=== PATIENT | female | born 1975 | race Caucasian/White ===

== ENCOUNTER 2018-09-30 13:14 | Inpatient (IN) | payer OTHER ==
[~2018-09-30] VITALS: Ht 167.6 cm; Wt 89.4 kg
[~2018-09-30 13:14] MED LIST: PROPOFOL 10 MG/ML, 100ML IV ONE; PROPOFOL 10 MG/ML, 20ML ONE
[2018-09-30] MEDS: PROPOFOL 100 ML IV PRN ×4 (13:22→22:09)
[2018-09-30] MEDS ORDERED: PROPOFOL 10 MG/ML, 20ML IVPush ONE (13:30)
[2018-09-30] MEDS ORDERED: SODIUM CHLORIDE FLUSH 10ML SYR IVF ONE (13:30)
--- NOTE | 2018-09-30 13:41 | NUR ---
PT. ARRIVES BY CARE FLIGHT FROM [facility] WITH C/O S/P CARDIAC ARREST. PER EMS REPORT PT. WAS FOUND BY HER S/O IN CARDIAC ARREST. PER S/O PT. HAS A HX OF METH USE. PT.'S S/O INICIATED CPR. UPON ARRIVAL PT. IS INTUBATED WITH A 7.5 ET TUBE THAT IS 24 CM AT THE LIP LINE. ETCO2 IS READING 30. PT. HAS GOOD BILAT BREATH SOUNDS THROUGHOUT. PT.'S VENT SETTINGS ARE: AC=14 AB=599 O2 IS AT 50% PEEO=5 I:E RATIO IS 1:3.8. PT. HAS AN IO IN PLACE IN HER RIGHT LEG, RN DCD' IT UPON ARRIVAL. PT. HAS A #20G IN HER LEFT HAND PLACED FENCE POST DRIVER WELL A #18 IN HER RIGHT FOOT PLACED FENCE POST DRIVER. PT. ARRIVES WITH AN INDWELLING SÁNCHEZ CATH THAT HAS 300CC CLEAR YELLOW URINE PRESENT IN THE BAG. PER FLIGHT RN REPORT PT. RECEIVED 1,400 CC NS FENCE POST DRIVER. PT. RESPONDS TO VERBAL STIMULI AND IS RESTLESS UPON ARRIVAL. PT. WAS PLACED ON A PROPOFOL GTT THAT IS INFUSING ON THE PUMP TO KEEP HER SEDATED. CONTINOUS MONITORING IS IN PLACE. PT.'S 12 LEAD EKG WAS DONE. LABS AND PCXR WERE COMPLETED. PT. HAS AN OG IN PLACE AT HER LEFT LIP. PT. WAS BLANKETS FOR WARMTH AND THE HOB IS ELEVATED GREATER THAN 30 DEGREES. LUNGS ARE CTA. MM ARE PINK AND MOIST WITH PULSES +2 THROUGHOUT. PT. IS PASSING GAS AND BS ARE + X 4 QUADS. PT.'S CAP REFILL IS BRISK. RR IS 14 WITH SATS 100%. PT. REMAINS ON ETCO2 MONITORING. RN IS AT THE BEDSIDE. VSS.
[2018-09-30 13:55] LABS: BASOPHILS % (AUTO) 0 % (0-1); EOSINOPHILS % (AUTO) 0 % (1-7); LYMPHOCYTES # (AUTO) 0.78 x10^3/uL (1-3.4); LYMPHOCYTES % (AUTO) 7 % (22-44); MD NO; MEAN CORPUSCULAR HEMOGLOBIN 28.2 pg (27.0-34.8); MEAN CORPUSCULAR HGB CONC 32.6 g/dL (32.4-35.8); MEAN CORPUSCULAR VOLUME 86.5 fL (80-100); MEAN PLATELET VOLUME 8.3 fL (7.4-10.4); MONOCYTES # (AUTO) 0.28 x10^3/uL (0.2-0.8); MONOCYTES % (AUTO) 3 % (2-9); NEUTROPHILS % (AUTO) 91 % (42-75); PLATELET COUNT 200 x10^3/uL (130-400); RED BLOOD COUNT 4.38 x10^6/uL (3.82-5.3); RED CELL DISTRIBUTION WIDTH 13.6 % (9.6-15.2)
[2018-09-30 14:03] LABS: INTERNATIONAL NORMALIZED RATIO 0.99 (0.93-1.1); PROTHROMBIN TIME 10.5 Seconds (9.6-11.5)
[2018-09-30 14:06] LABS: ALANINE AMINOTRANSFERASE 121 U/L (12-78); ANION GAP 5 mmol/L (5-15); CALCIUM 7.3 mg/dL (8.5-10.1); CHLORIDE 113 mmol/L (98-107); CREATININE 0.63 mg/dL (0.55-1.02)
--- NOTE | 2018-09-30 14:08 | NUR ---
PT. IS OPENING HER EYES AND RESTLESS. PT. REPONDS TO VERBAL STIMULI. PROPOFOL GTT TITRATED UP TO KEEP THE PT. SEDATED. PUPILS ARE ELLIS. SKIN CARE WAS GIVEN.
[2018-09-30 14:10] LABS: ALKALINE PHOSPHATASE 87 U/L (45-117); BILIRUBIN,TOTAL 0.3 mg/dL (0.2-1.0)
[2018-09-30 14:12] LABS: TROPONIN I 0.328 ng/mL (0.000-0.045)
[2018-09-30] MEDS ORDERED: SODIUM CHLORIDE FLUSH 10ML SYR IVF PRN (14:30)
[2018-09-30] MEDS ORDERED: PLEASE ENTER ALLERGIES MC SCH (14:30)
--- NOTE | 2018-09-30 14:48 | NUR ---
REPORT CALLED TO CCU RN. DR. PHAM IS AT THE BEDSIDE. PT. IS RESTLESS. PROPOFOL INCREASED.
[2018-09-30] MEDS ORDERED: SODIUM CHLORIDE 0.9% 1,000 ML IV SCH ×2 (14:52→16:15)
[2018-09-30] MEDS ORDERED: BISACODYL 10 MG SUPP PR PRN ×2 (15:00→16:30)
[2018-09-30] MEDS ORDERED: DOCUSATE 100 MG CAPSULE PO PRN (15:00)
[2018-09-30] MEDS ORDERED: POLYETHYLENE GLYCOL 17 GM PACKET PO PRN (15:00)
[2018-09-30] MEDS ORDERED: FENTANYL PF 2,500 MCG in SODIUM CHLORIDE 0.9% 200 ML IV PRN (15:30)
[2018-09-30] MEDS ORDERED: PROPOFOL 100 ML IV ONE (16:04)
[2018-09-30] MEDS ORDERED: LIDOCAINE-MPF 1%, 2ML ENDO PRN (16:30)
[2018-09-30] MEDS ORDERED: SENNOSIDES 8.8 MG/5 ML ORAL SOL NG PRN (16:30)
[2018-09-30] MEDS ORDERED: PHARMACY MAY ADJ FOR RENAL FX MC SCH (16:30)
[2018-09-30] MEDS ORDERED: LACTULOSE 20 GM/30 ML UDC NG PRN (16:30)
[2018-09-30] MEDS ORDERED: SENNA/DOCUSATE TABLET NG PRN (16:30)
[2018-09-30 17:06] LABS: TROPONIN I 0.247 ng/mL (0.000-0.045)
[2018-09-30] MEDS ORDERED: CARVEDILOL 3.125 MG TABLET PO SCH (18:00)
[2018-09-30] MEDS: ASPIRIN 81 MG TABLET CHEW PO SCH (18:02)
[2018-09-30] MEDS: AMPICILLIN/SULBACTAM 3 GM in SODIUM CHLORIDE 0.9% 100 ML IV SCH ×2 (18:02→23:09)
[2018-09-30] MEDS: ENOXAPARIN 40 MG/0.4 ML SQ SCH (18:04)
[2018-09-30] MEDS: THIAMINE 200 MG in SODIUM CHLORIDE 0.9% 50 ML IV SCH (19:09)
[2018-09-30 19:28] LABS: MICROSCOPIC INDICATED
[2018-09-30 19:32] LABS: AMPHETAMINE SCREEN, URINE Positive (Negative); BARBITURATE SCREEN, URINE Negative (Negative); BENZODIAZEPINE SCREEN, URINE Positive (Negative); CANNABINOID SCREEN, URINE Negative (Negative); COCAINE SCREEN, URINE Negative (Negative); METHADONE SCREEN, URINE Negative (Negative); OPIATE SCREEN, URINE Negative (Negative)
[2018-09-30 22:34] LABS: TROPONIN I 0.094 ng/mL (0.000-0.045)
[2018-10-01] MEDS: PROPOFOL 100 ML IV PRN ×4 (00:01→07:38)
[2018-10-01 04:30] LABS: BASOPHILS # (AUTO) 0.03 x10^3/uL (0-0.1); BASOPHILS % (AUTO) 0 % (0-1); EOSINOPHILS # (AUTO) 0.02 x10^3/uL (0-0.4); EOSINOPHILS % (AUTO) 0 % (1-7); LYMPHOCYTES # (AUTO) 1.31 x10^3/uL (1-3.4); LYMPHOCYTES % (AUTO) 14 % (22-44); MD NO; MEAN CORPUSCULAR HEMOGLOBIN 28.7 pg (27.0-34.8); MEAN CORPUSCULAR HGB CONC 33.5 g/dL (32.4-35.8); MEAN CORPUSCULAR VOLUME 85.6 fL (80-100); MEAN PLATELET VOLUME 8.3 fL (7.4-10.4); MONOCYTES # (AUTO) 0.52 x10^3/uL (0.2-0.8); MONOCYTES % (AUTO) 6 % (2-9); NEUTROPHILS # (AUTO) 7.42 x10^3/uL (1.8-6.8); NEUTROPHILS % (AUTO) 80 % (42-75); PLATELET COUNT 201 x10^3/uL (130-400); RED BLOOD COUNT 4.29 x10^6/uL (3.82-5.3); RED CELL DISTRIBUTION WIDTH 13.8 % (9.6-15.2)
[2018-10-01 04:42] LABS: ALANINE AMINOTRANSFERASE 97 U/L (12-78); ANION GAP 8 mmol/L (5-15); CALCIUM 8.2 mg/dL (8.5-10.1); CHLORIDE 109 mmol/L (98-107); CREATININE 0.68 mg/dL (0.55-1.02)
[2018-10-01 04:44] LABS: ALKALINE PHOSPHATASE 90 U/L (45-117); BILIRUBIN,TOTAL 0.4 mg/dL (0.2-1.0); TOTAL PROTEIN 6.2 g/dL (6.4-8.2)
[2018-10-01] MEDS: AMPICILLIN/SULBACTAM 3 GM in SODIUM CHLORIDE 0.9% 100 ML IV SCH ×4 (05:07→23:24)
[2018-10-01] MEDS ORDERED: POTASSIUM CHLORIDE 10% 40 MEQ/30 ML UDC PO ONE (07:00)
[2018-10-01] MEDS: PANTOPRAZOLE 40 MG IV IVPush SCH (07:23)
[2018-10-01] MEDS ORDERED: TUMERIC PO (14:05)
[2018-10-01] MEDS ORDERED: IBUP100O32 PO (14:05)
[2018-10-01] MEDS ORDERED: MULT-658 PO (14:05)
[2018-10-01] MEDS ORDERED: SODIUM CHLORIDE 0.9% 1,000 ML IV SCH (14:52)
[2018-10-01] MEDS: THIAMINE 200 MG in SODIUM CHLORIDE 0.9% 50 ML IV SCH (16:56)
[2018-10-01] MEDS: CARVEDILOL 3.125 MG TABLET PO SCH (17:00)
[2018-10-01] MEDS: ASPIRIN 81 MG TABLET CHEW PO SCH (17:00)
[2018-10-01] MEDS: ENOXAPARIN 40 MG/0.4 ML SQ SCH (17:01)
[2018-10-01 19:52] VITALS: BP 112/76
[2018-10-01] MEDS ORDERED: LIDODERM 5% PATCH TD ONE (22:00)
[2018-10-02] MEDS: KETOROLAC 30 MG/1 ML IVPush PRN ×4 (03:19→22:35)
[2018-10-02 03:22] VITALS: BP 136/86
[2018-10-02] MEDS: AMPICILLIN/SULBACTAM 3 GM in SODIUM CHLORIDE 0.9% 100 ML IV SCH ×3 (05:27→17:41)
[2018-10-02] MEDS: CARVEDILOL 3.125 MG TABLET PO SCH ×2 (06:28→17:44)
[2018-10-02] MEDS ORDERED: POTASSIUM CHLORIDE 20 MEQ TAB.ER.PRT PO ONE (06:30)
[2018-10-02 07:01] LABS: CULTURE INDICATED? YES; MICROSCOPIC INDICATED
[2018-10-02 07:21] LABS: BASOPHILS # (AUTO) 0.03 x10^3/uL (0-0.1); BASOPHILS % (AUTO) 0 % (0-1); EOSINOPHILS # (AUTO) 0.09 x10^3/uL (0-0.4); EOSINOPHILS % (AUTO) 1 % (1-7); LYMPHOCYTES # (AUTO) 1.85 x10^3/uL (1-3.4); LYMPHOCYTES % (AUTO) 20 % (22-44); MD SCAN; MEAN CORPUSCULAR HEMOGLOBIN 28.5 pg (27.0-34.8); MEAN CORPUSCULAR HGB CONC 33.1 g/dL (32.4-35.8); MEAN CORPUSCULAR VOLUME 85.9 fL (80-100); MEAN PLATELET VOLUME 8.3 fL (7.4-10.4); MONOCYTES # (AUTO) 0.61 x10^3/uL (0.2-0.8); MONOCYTES % (AUTO) 7 % (2-9); NEUTROPHILS # (AUTO) 6.94 x10^3/uL (1.8-6.8); NEUTROPHILS % (AUTO) 73 % (42-75); PLATELET COUNT 182 x10^3/uL (130-400); RED BLOOD COUNT 4.06 x10^6/uL (3.82-5.3); RED CELL DISTRIBUTION WIDTH 13.6 % (9.6-15.2)
[2018-10-02 08:42] VITALS: BP 124/82
[2018-10-02] MEDS: PANTOPRAZOLE 40 MG IV IVPush SCH (08:52)
[2018-10-02 12:49] LABS: ALBUMIN 3.3 g/dL (3.4-5.0); ANION GAP 5 mmol/L (5-15); CALCIUM 8.7 mg/dL (8.5-10.1); CHLORIDE 110 mmol/L (98-107); CREATININE 0.57 mg/dL (0.55-1.02)
[2018-10-02 13:54] VITALS: BP 109/74
[2018-10-02 14:24] VITALS: BP 109/74
[2018-10-02] MEDS: ASPIRIN 81 MG TABLET CHEW PO SCH (17:43)
[2018-10-02] MEDS: THIAMINE 200 MG in SODIUM CHLORIDE 0.9% 50 ML IV SCH (18:22)
[2018-10-02] MEDS: ENOXAPARIN 40 MG/0.4 ML SQ SCH (18:31)
[2018-10-02 18:35] VITALS: BP 125/87
[2018-10-02] MEDS: LEVOFLOXACIN/PMX 750MG/150ML 150 ML IV SCH (21:01)
[2018-10-03 01:30] VITALS: BP 121/79
[2018-10-03] MEDS: KETOROLAC 30 MG/1 ML IVPush PRN ×4 (04:40→23:46)
[2018-10-03] MEDS: CARVEDILOL 3.125 MG TABLET PO SCH (05:34)
[2018-10-03 05:49] LABS: CHLORIDE 109 mmol/L (98-107)
[2018-10-03 05:57] LABS: ALANINE AMINOTRANSFERASE 59 U/L (12-78); ALKALINE PHOSPHATASE 85 U/L (45-117); ANION GAP 6 mmol/L (5-15); BILIRUBIN,TOTAL 0.5 mg/dL (0.2-1.0); CALCIUM 8.6 mg/dL (8.5-10.1); CREATININE 0.59 mg/dL (0.55-1.02); TOTAL PROTEIN 6.6 g/dL (6.4-8.2); TRIGLYCERIDES 49 mg/dL (50-200)
[2018-10-03] MEDS ORDERED: MAGNESIUM SULFATE 3 GM in SODIUM CHLORIDE 0.9% 100 ML IV ONE (06:30)
[2018-10-03 07:54] VITALS: BP 131/85
[2018-10-03] MEDS: PANTOPRAZOLE 40 MG IV IVPush SCH (08:01)
[2018-10-03] MEDS ORDERED: LIDODERM 5% PATCH TD PRN (09:30)
[2018-10-03] MEDS ORDERED: MAGNESIUM SULFATE PMX 2GM/50ML 50 ML IV ONE (10:30)
[2018-10-03] MEDS: SPIRONOLACTONE 25 MG TABLET PO SCH (12:19)
[2018-10-03] MEDS: LISINOPRIL 5 MG TABLET PO SCH (12:19)
[2018-10-03 12:37] VITALS: BP 121/75
[2018-10-03] MEDS: ASPIRIN 81 MG TABLET CHEW PO SCH (16:43)
[2018-10-03] MEDS: CARVEDILOL 6.25 MG TABLET PO SCH (16:45)
[2018-10-03] MEDS: ENOXAPARIN 40 MG/0.4 ML SQ SCH (16:46)
[2018-10-03] MEDS: THIAMINE 200 MG in SODIUM CHLORIDE 0.9% 50 ML IV SCH (16:56)
[2018-10-03 19:58] VITALS: BP 129/72
[2018-10-03] MEDS: LIDODERM 5% PATCH TD SCH (20:10)
[2018-10-03] MEDS: LEVOFLOXACIN/PMX 750MG/150ML 150 ML IV SCH (20:11)
[2018-10-04 02:53] VITALS: BP 125/84
[2018-10-04 05:32] LABS: BASOPHILS # (AUTO) 0.05 x10^3/uL (0-0.1); BASOPHILS % (AUTO) 1 % (0-1); EOSINOPHILS # (AUTO) 0.13 x10^3/uL (0-0.4); EOSINOPHILS % (AUTO) 2 % (1-7); LYMPHOCYTES # (AUTO) 1.85 x10^3/uL (1-3.4); LYMPHOCYTES % (AUTO) 28 % (22-44); MD NO; MEAN CORPUSCULAR HGB CONC 33.9 g/dL (32.4-35.8); MEAN CORPUSCULAR VOLUME 85.7 fL (80-100); MEAN PLATELET VOLUME 8.1 fL (7.4-10.4); MONOCYTES # (AUTO) 0.43 x10^3/uL (0.2-0.8); MONOCYTES % (AUTO) 7 % (2-9); NEUTROPHILS # (AUTO) 4.16 x10^3/uL (1.8-6.8); NEUTROPHILS % (AUTO) 63 % (42-75); PLATELET COUNT 206 x10^3/uL (130-400); RED CELL DISTRIBUTION WIDTH 13.5 % (9.6-15.2)
[2018-10-04 05:40] LABS: ALANINE AMINOTRANSFERASE 48 U/L (12-78); ANION GAP 6 mmol/L (5-15); CALCIUM 8.3 mg/dL (8.5-10.1); CHLORIDE 109 mmol/L (98-107); CREATININE 0.67 mg/dL (0.55-1.02)
[2018-10-04 05:42] LABS: ALKALINE PHOSPHATASE 83 U/L (45-117); BILIRUBIN,TOTAL 0.3 mg/dL (0.2-1.0); TOTAL PROTEIN 6.5 g/dL (6.4-8.2)
[2018-10-04] MEDS: CARVEDILOL 6.25 MG TABLET PO SCH ×2 (05:52→17:45)
[2018-10-04 07:41] VITALS: BP 112/69
[2018-10-04] MEDS: PANTOPROZOLE 40MG TABLET PO SCH (08:31)
[2018-10-04] MEDS: SPIRONOLACTONE 25 MG TABLET PO SCH (08:31)
[2018-10-04] MEDS: KETOROLAC 30 MG/1 ML IVPush PRN ×3 (08:31→17:45)
[2018-10-04] MEDS: ASPIRIN 81 MG TABLET CHEW PO SCH (08:31)
[2018-10-04] MEDS: LISINOPRIL 5 MG TABLET PO SCH (08:31)
[2018-10-04 12:17] VITALS: BP 128/86
[2018-10-04] MEDS: THIAMINE 200 MG in SODIUM CHLORIDE 0.9% 50 ML IV SCH (17:45)
[2018-10-04] MEDS: ENOXAPARIN 40 MG/0.4 ML SQ SCH (18:00)
[2018-10-04 20:00] VITALS: BP 126/80
[2018-10-04] MEDS: LIDODERM 5% PATCH TD SCH (21:41)
[2018-10-04] MEDS: LEVOFLOXACIN/PMX 750MG/150ML 150 ML IV SCH (22:25)
[2018-10-05 00:15] VITALS: BP 117/82
[2018-10-05] MEDS: KETOROLAC 30 MG/1 ML IVPush PRN ×3 (00:31→19:10)
[2018-10-05 05:33] LABS: MEAN CORPUSCULAR HEMOGLOBIN 28.9 pg (27.0-34.8); MEAN CORPUSCULAR VOLUME 85.7 fL (80-100); RED BLOOD COUNT 4.13 x10^6/uL (3.82-5.3)
[2018-10-05 05:34] LABS: BASOPHILS # (AUTO) 0.04 x10^3/uL (0-0.1); BASOPHILS % (AUTO) 1 % (0-1); EOSINOPHILS % (AUTO) 3 % (1-7); LYMPHOCYTES % (AUTO) 30 % (22-44); MD NO; MEAN CORPUSCULAR HGB CONC 33.7 g/dL (32.4-35.8); MEAN PLATELET VOLUME 8.3 fL (7.4-10.4); MONOCYTES # (AUTO) 0.43 x10^3/uL (0.2-0.8); MONOCYTES % (AUTO) 7 % (2-9); NEUTROPHILS # (AUTO) 3.56 x10^3/uL (1.8-6.8); NEUTROPHILS % (AUTO) 59 % (42-75); PLATELET COUNT 219 x10^3/uL (130-400); RED CELL DISTRIBUTION WIDTH 13.1 % (9.6-15.2)
[2018-10-05 05:40] VITALS: BP 123/81
[2018-10-05] MEDS: CARVEDILOL 6.25 MG TABLET PO SCH ×2 (05:41→18:06)
[2018-10-05 05:46] LABS: ANION GAP 7 mmol/L (5-15); CHLORIDE 109 mmol/L (98-107); CREATININE 0.74 mg/dL (0.55-1.02)
[2018-10-05 07:20] VITALS: BP 123/82
[2018-10-05] MEDS: PANTOPROZOLE 40MG TABLET PO SCH (09:08)
[2018-10-05] MEDS: SPIRONOLACTONE 25 MG TABLET PO SCH (09:09)
[2018-10-05] MEDS: LISINOPRIL 5 MG TABLET PO SCH (09:09)
[2018-10-05] MEDS: ASPIRIN 81 MG TABLET CHEW PO SCH (09:10)
[2018-10-05 13:19] VITALS: BP 120/82
[2018-10-05] MEDS ORDERED: LIDOCAINE 1%, 20ML ONE (13:50)
[2018-10-05] MEDS ORDERED: FENTANYL PF 100 MCG/2ML ONE (13:50)
[2018-10-05] MEDS ORDERED: MIDAZOLAM 1 MG/ML, 2ML ONE (13:50)
[2018-10-05] MEDS ORDERED: VERAPAMIL 2.5 MG/ML, 2ML ONE (13:50)
[2018-10-05] MEDS ORDERED: DIPHENHYDRAMINE 50 MG/ML, 1ML ONE (14:37)
[2018-10-05] MEDS: ENOXAPARIN 40 MG/0.4 ML SQ SCH (15:45)
[2018-10-05] MEDS: THIAMINE 200 MG in SODIUM CHLORIDE 0.9% 50 ML IV SCH (17:30)
[2018-10-05] MEDS: LEVOFLOXACIN/PMX 750MG/150ML 150 ML IV SCH (19:58)
[2018-10-05 20:57] VITALS: BP 90/63
[2018-10-05] MEDS: LIDODERM 5% PATCH TD SCH (21:00)
[2018-10-05 22:29] VITALS: BP 105/69
[2018-10-06 02:47] VITALS: BP 104/71
[2018-10-06] MEDS: KETOROLAC 30 MG/1 ML IVPush PRN (03:12)
[2018-10-06 05:16] LABS: BASOPHILS # (AUTO) 0.03 x10^3/uL (0-0.1); BASOPHILS % (AUTO) 0 % (0-1); EOSINOPHILS # (AUTO) 0.17 x10^3/uL (0-0.4); EOSINOPHILS % (AUTO) 2 % (1-7); LYMPHOCYTES # (AUTO) 1.65 x10^3/uL (1-3.4); LYMPHOCYTES % (AUTO) 23 % (22-44); MD NO; MEAN CORPUSCULAR HEMOGLOBIN 29.3 pg (27.0-34.8); MEAN CORPUSCULAR HGB CONC 34.1 g/dL (32.4-35.8); MEAN PLATELET VOLUME 8.2 fL (7.4-10.4); MONOCYTES # (AUTO) 0.55 x10^3/uL (0.2-0.8); MONOCYTES % (AUTO) 8 % (2-9); NEUTROPHILS % (AUTO) 66 % (42-75); PLATELET COUNT 224 x10^3/uL (130-400); RED BLOOD COUNT 4.25 x10^6/uL (3.82-5.3); RED CELL DISTRIBUTION WIDTH 13.4 % (9.6-15.2)
[2018-10-06 05:21] VITALS: BP 116/77
[2018-10-06] MEDS: CARVEDILOL 6.25 MG TABLET PO SCH ×2 (05:22→17:45)
[2018-10-06 07:29] VITALS: BP 119/74
[2018-10-06] MEDS: SPIRONOLACTONE 25 MG TABLET PO SCH (09:05)
[2018-10-06] MEDS: LISINOPRIL 5 MG TABLET PO SCH (09:06)
[2018-10-06] MEDS: ASPIRIN 81 MG TABLET CHEW PO SCH (09:06)
[2018-10-06] MEDS: PANTOPROZOLE 40MG TABLET PO SCH (09:06)
[2018-10-06 12:44] VITALS: BP 139/94
[2018-10-06] MEDS: ENOXAPARIN 40 MG/0.4 ML SQ SCH (17:42)
[2018-10-06] MEDS: IBUPROFEN 200 MG TABLET PO PRN (17:44)
[2018-10-06] MEDS: THIAMINE 200 MG in SODIUM CHLORIDE 0.9% 50 ML IV SCH (17:45)
[2018-10-06 19:06] VITALS: BP 126/83
[2018-10-06] MEDS: LIDODERM 5% PATCH TD SCH (20:04)
[2018-10-06] MEDS: LEVOFLOXACIN/PMX 750MG/150ML 150 ML IV SCH (20:05)
[2018-10-07] MEDS: IBUPROFEN 200 MG TABLET PO PRN ×3 (01:44→19:58)
[2018-10-07 01:50] VITALS: BP 106/69
[2018-10-07 05:03] VITALS: BP 124/79
[2018-10-07] MEDS: CARVEDILOL 6.25 MG TABLET PO SCH ×2 (05:04→17:59)
[2018-10-07 06:04] LABS: BASOPHILS # (AUTO) 0.03 x10^3/uL (0-0.1); BASOPHILS % (AUTO) 0 % (0-1); EOSINOPHILS # (AUTO) 0.18 x10^3/uL (0-0.4); EOSINOPHILS % (AUTO) 2 % (1-7); LYMPHOCYTES # (AUTO) 1.82 x10^3/uL (1-3.4); LYMPHOCYTES % (AUTO) 24 % (22-44); MD NO; MEAN CORPUSCULAR HEMOGLOBIN 28.6 pg (27.0-34.8); MEAN CORPUSCULAR HGB CONC 33.4 g/dL (32.4-35.8); MEAN CORPUSCULAR VOLUME 85.7 fL (80-100); MEAN PLATELET VOLUME 8.2 fL (7.4-10.4); MONOCYTES # (AUTO) 0.51 x10^3/uL (0.2-0.8); MONOCYTES % (AUTO) 7 % (2-9); NEUTROPHILS # (AUTO) 5.01 x10^3/uL (1.8-6.8); NEUTROPHILS % (AUTO) 66 % (42-75); PLATELET COUNT 249 x10^3/uL (130-400); RED BLOOD COUNT 4.38 x10^6/uL (3.82-5.3); RED CELL DISTRIBUTION WIDTH 13.5 % (9.6-15.2)
[2018-10-07 06:17] LABS: ANION GAP 8 mmol/L (5-15); CALCIUM 9.3 mg/dL (8.5-10.1); CHLORIDE 105 mmol/L (98-107)
[2018-10-07 06:18] LABS: CREATININE 0.76 mg/dL (0.55-1.02)
[2018-10-07 06:49] VITALS: BP 109/73
[2018-10-07] MEDS: LISINOPRIL 5 MG TABLET PO SCH (08:05)
[2018-10-07] MEDS: PANTOPROZOLE 40MG TABLET PO SCH (08:05)
[2018-10-07] MEDS: SPIRONOLACTONE 25 MG TABLET PO SCH (11:40)
[2018-10-07 12:40] VITALS: BP 114/79
[2018-10-07] MEDS: SODIUM CHLORIDE 0.9% 1,000 ML IV SCH ×2 (13:49→19:59)
[2018-10-07] MEDS ORDERED: FENTANYL PF 250 MCG/5ML ONE ×2 (13:57→15:18)
[2018-10-07] MEDS ORDERED: DIPHENHYDRAMINE 50 MG/ML, 1ML ONE (13:57)
[2018-10-07] MEDS ORDERED: CEFAZOLIN 1,000 MG ONE (13:57)
[2018-10-07] MEDS ORDERED: LIDOCAINE 1%, 20ML ONE ×3 (13:57→15:28)
[2018-10-07] MEDS ORDERED: MIDAZOLAM 1 MG/ML, 5ML ONE ×2 (13:58→15:18)
[2018-10-07] MEDS ORDERED: CEFAZOLIN PMX 1GM/50ML 50 ML IVPB ONE (14:00)
[2018-10-07] MEDS ORDERED: HOLD MEDICATION MC PRN (16:30)
[2018-10-07] MEDS: ENOXAPARIN 40 MG/0.4 ML SQ SCH (17:50)
[2018-10-07 17:56] VITALS: BP 101/62
[2018-10-07] MEDS: ASPIRIN 81 MG TABLET CHEW PO SCH (17:59)
[2018-10-07] MEDS: THIAMINE 200 MG in SODIUM CHLORIDE 0.9% 50 ML IV SCH (19:47)
[2018-10-07] MEDS: LIDODERM 5% PATCH TD SCH (19:58)
[2018-10-07] MEDS: SODIUM CHLORIDE FLUSH 10ML SYR IVF SCH (19:58)
[2018-10-07] MEDS: LEVOFLOXACIN/PMX 750MG/150ML 150 ML IV SCH (19:59)
[2018-10-07 20:10] VITALS: BP 116/64
[2018-10-07] MEDS: HYDROcodone/APAP 5/325 TABLET PO PRN (21:19)
[2018-10-07] MEDS: CEFAZOLIN PMX 1GM/50ML 50 ML IVPB SCH (22:21)
[2018-10-08 00:34] VITALS: BP 100/68
[2018-10-08] MEDS: HYDROcodone/APAP 5/325 TABLET PO PRN ×3 (01:23→10:44)
[2018-10-08] MEDS: SODIUM CHLORIDE 0.9% 1,000 ML IV SCH (04:38)
[2018-10-08 05:11] LABS: BASOPHILS # (AUTO) 0.03 x10^3/uL (0-0.1); BASOPHILS % (AUTO) 0 % (0-1); EOSINOPHILS % (AUTO) 2 % (1-7); LYMPHOCYTES # (AUTO) 1.82 x10^3/uL (1-3.4); LYMPHOCYTES % (AUTO) 22 % (22-44); MD NO; MEAN CORPUSCULAR HGB CONC 33.4 g/dL (32.4-35.8); MEAN CORPUSCULAR VOLUME 86.8 fL (80-100); MONOCYTES # (AUTO) 0.58 x10^3/uL (0.2-0.8); MONOCYTES % (AUTO) 7 % (2-9); NEUTROPHILS % (AUTO) 69 % (42-75); PLATELET COUNT 240 x10^3/uL (130-400); RED CELL DISTRIBUTION WIDTH 13.6 % (9.6-15.2)
[2018-10-08 05:28] LABS: CHLORIDE 107 mmol/L (98-107)
[2018-10-08 05:33] LABS: ANION GAP 5 mmol/L (5-15); CALCIUM 8.5 mg/dL (8.5-10.1); CREATININE 0.95 mg/dL (0.55-1.02)
[2018-10-08 05:55] VITALS: BP 90/55
[2018-10-08] MEDS: CEFAZOLIN PMX 1GM/50ML 50 ML IVPB SCH (05:56)
[2018-10-08] MEDS: CARVEDILOL 6.25 MG TABLET PO SCH (05:59)
[2018-10-08 08:09] VITALS: BP 92/59
[2018-10-08] MEDS: LISINOPRIL 5 MG TABLET PO SCH (08:10)
[2018-10-08] MEDS: PANTOPROZOLE 40MG TABLET PO SCH (08:24)
[2018-10-08] MEDS: SODIUM CHLORIDE FLUSH 10ML SYR IVF SCH (08:25)
[2018-10-08 08:26] VITALS: BP 104/72
[2018-10-08] MEDS: SPIRONOLACTONE 25 MG TABLET PO SCH (08:31)
[2018-10-08] MEDS: IBUPROFEN 200 MG TABLET PO PRN (08:31)
[2018-10-08] MEDS ORDERED: SPIR25TA PO (11:36)
[2018-10-08] MEDS ORDERED: LISI5TAB7 PO (11:36)
[2018-10-08] MEDS ORDERED: CARV6.2512 PO (11:36)
[2018-10-08] MEDS ORDERED: LIDO700A20 TD (11:36)
[2018-10-08] MEDS ORDERED: THIA100T67 PO (11:36)
== END 2018-10-08 14:05 | disposition home or self-care (01) | DRG 222 ==
LOC: ED 14:46 → EDIP 14:47 → CCU 15:04 → 5SO 10-01 18:05 → DCLOUNGE 10-08 13:35
PROVIDERS: ADMIT Hospitalist; ATTEND Hospitalist
PROC: 0T9B70Z Drainage of Bladder with Drainage Device, Via Natural or Artificial Opening (ICD-10-PCS; principal; 2018-09-30)
PROC: 4A023N7 Measurement of Cardiac Sampling and Pressure, Left Heart, Percutaneous Approach (ICD-10-PCS; 2018-09-30)
PROC: 5A1935Z Respiratory Ventilation, Less than 24 Consecutive Hours (ICD-10-PCS; 2018-09-30)
PROC: 0BH17EZ Insertion of Endotracheal Airway into Trachea, Via Natural or Artificial Opening (ICD-10-PCS; 2018-09-30)
PROC: B2111ZZ Fluoroscopy of Multiple Coronary Arteries using Low Osmolar Contrast (ICD-10-PCS; 2018-09-30)
PROC: B2151ZZ Fluoroscopy of Left Heart using Low Osmolar Contrast (ICD-10-PCS; 2018-09-30)
PROC: 03HY32Z Insertion of Monitoring Device into Upper Artery, Percutaneous Approach (ICD-10-PCS; 2018-09-30)
PROC: 5A12012 Performance of Cardiac Output, Single, Manual (ICD-10-PCS; 2018-09-30)
PROC: 0JH608Z Insertion of Defibrillator Generator into Chest Subcutaneous Tissue and Fascia, Open Approach (ICD-10-PCS; 2018-10-07)
PROC: 02HK3KZ Insertion of Defibrillator Lead into Right Ventricle, Percutaneous Approach (ICD-10-PCS; 2018-10-07)
PROC: 02H63KZ Insertion of Defibrillator Lead into Right Atrium, Percutaneous Approach (ICD-10-PCS; 2018-10-07)
DX: I50.21 Acute systolic (congestive) heart failure (principal); I49.01 Ventricular fibrillation; J15.211 Pneumonia due to Methicillin susceptible Staphylococcus aureus; J15.5 Pneumonia due to Escherichia coli; J96.01 Acute respiratory failure with hypoxia; I46.2 Cardiac arrest due to underlying cardiac condition; G93.40 Encephalopathy, unspecified; R57.9 Shock, unspecified; Z99.11 Dependence on respirator [ventilator] status; I42.9 Cardiomyopathy, unspecified; E83.42 Hypomagnesemia; F11.90 Opioid use, unspecified, uncomplicated; F15.10 Other stimulant abuse, uncomplicated; I49.3 Ventricular premature depolarization; L98.9 Disorder of the skin and subcutaneous tissue, unspecified; Z87.891 Personal history of nicotine dependence
CPT/HCPCS: 33249; 36415; 36600; 71045; 80048; 80053; 80307; 81001; 82040; 82803; 83605; 83690; 83735; 83880; 84100; 84145; 84478; 84484; 85014; 85018; 85025; 85610; 85730; 86803; 87040; 87070; 87077; 87081; 87086; 87186; 87205; 87806; 93005; 93306; 93308; 93321; 93325; 93458; 94002; 94003; 96374; 99156; 99157; 99285; C1721; C1769; C1779; C1892; C1894; C1895; G0378; J0295; J0690; J1650; J1885; J1956; J2250; J2704; J3010; J3411; J3475; J3490; C9113; G0475; J1200; J7030; J7050; Q9967

== ENCOUNTER 2018-11-16 19:45 | Inpatient (IN) | payer MEDICAID ==
[~2018-11-16] VITALS: Ht 170.2 cm; Wt 99.4 kg
[~2018-11-16 19:45] MED LIST changes: +CARV6.2512 PO; +IBUP100O32 PO; +LIDO700A20 TD; +LISI5TAB7 PO; +MULT-658 PO; -PROPOFOL 10 MG/ML, 100ML IV ONE; -PROPOFOL 10 MG/ML, 20ML ONE; +SPIR25TA PO; +THIA100T67 PO; +TUMERIC PO
--- NOTE | 2018-11-16 20:07 | NUR ---
SENT BY DR. FORMAN FOR PACKERMAKER/DEFIBRILLATOR ([facility]) FIRED TWICE THIS WEEKEND AFTER DOING METH LAST FRIDAY PT WAS ON GOWN ERP AT BED SIDE PT EXPLAINED WHAT WAS HAPPENED
[2018-11-16] MEDS ORDERED: CARV12.543 PO (20:14)
[2018-11-16] MEDS ORDERED: SODIUM CHLORIDE 0.9% 1,000ML IVBOLUS ONE (20:30)
[2018-11-16] MEDS ORDERED: ASPIRIN 81 MG TABLET CHEW PO ONE (20:30)
[2018-11-16 20:38] LABS: BASOPHILS # (AUTO) 0.01 x10^3/uL (0-0.1); BASOPHILS % (AUTO) 0 % (0-1); EOSINOPHILS # (AUTO) 0.25 x10^3/uL (0-0.4); EOSINOPHILS % (AUTO) 6 % (1-7); LYMPHOCYTES # (AUTO) 1.59 x10^3/uL (1-3.4); LYMPHOCYTES % (AUTO) 39 % (22-44); MD NO; MEAN CORPUSCULAR HEMOGLOBIN 28.9 pg (27.0-34.8); MEAN CORPUSCULAR HGB CONC 33.6 g/dL (32.4-35.8); MEAN CORPUSCULAR VOLUME 86.1 fL (80-100); MEAN PLATELET VOLUME 8.1 fL (7.4-10.4); MONOCYTES # (AUTO) 0.53 x10^3/uL (0.2-0.8); MONOCYTES % (AUTO) 13 % (2-9); NEUTROPHILS # (AUTO) 1.75 x10^3/uL (1.8-6.8); NEUTROPHILS % (AUTO) 42 % (42-75); PLATELET COUNT 176 x10^3/uL (130-400); RED BLOOD COUNT 4.55 x10^6/uL (3.82-5.3); RED CELL DISTRIBUTION WIDTH 13.8 % (9.6-15.2)
[2018-11-16 20:53] LABS: ALBUMIN 3.8 g/dL (3.4-5.0); ANION GAP 7 mmol/L (5-15); CALCIUM 8.4 mg/dL (8.5-10.1); CHLORIDE 112 mmol/L (98-107); CREATININE 0.61 mg/dL (0.55-1.02)
[2018-11-16 20:56] LABS: TROPONIN I < 0.015 ng/mL (0.000-0.045)
[2018-11-16] MEDS ORDERED: ASPIRIN 325 MG TABLET ONE (21:14)
[2018-11-16] MEDS ORDERED: ASPIRIN 81 MG TABLET CHEW ONE (21:15)
--- NOTE | 2018-11-16 21:17 | NUR ---
DR TAM AT BED SIDE FOR ADMIT EVAL VSS STABLE [facility] CAME IN AND OFF DEFIB DEFIB PADS WERE ON AFTER OFF PT'S DEFIB VSS STABLE IV WAS STARTED FAMILY AT BEDSIDE
--- NOTE | 2018-11-16 22:12 | NUR ---
GIVEN REPORT TO FABY ARGUELLO
[2018-11-16] MEDS ORDERED: CARVEDILOL 12.5 MG TABLET PO SCH (22:30)
[2018-11-16] MEDS ORDERED: POLYETHYLENE GLYCOL 17 GM PACKET PO PRN (22:30)
[2018-11-16] MEDS ORDERED: ONDANSETRON ODT 4 MG PO PRN (22:30)
[2018-11-16] MEDS ORDERED: BISACODYL 10 MG SUPP PR PRN (22:30)
[2018-11-16 22:56] VITALS: BP 102/67
[2018-11-16] MEDS: SODIUM CHLORIDE FLUSH 10ML SYR IVF SCH (23:29)
[2018-11-16] MEDS: NICOTINE 21 MG/24 HR PATCH.TD24 TD SCH (23:29)
[2018-11-17 05:07] VITALS: BP 110/73
[2018-11-17] MEDS: CARVEDILOL 12.5 MG TABLET PO SCH ×2 (05:09→19:05)
[2018-11-17 05:55] LABS: BASOPHILS # (AUTO) 0.02 x10^3/uL (0-0.1); BASOPHILS % (AUTO) 1 % (0-1); EOSINOPHILS # (AUTO) 0.17 x10^3/uL (0-0.4); EOSINOPHILS % (AUTO) 5 % (1-7); LYMPHOCYTES % (AUTO) 49 % (22-44); MD NO; MEAN CORPUSCULAR HEMOGLOBIN 28.5 pg (27.0-34.8); MEAN CORPUSCULAR HGB CONC 33.5 g/dL (32.4-35.8); MEAN CORPUSCULAR VOLUME 85.2 fL (80-100); MEAN PLATELET VOLUME 8.7 fL (7.4-10.4); MONOCYTES # (AUTO) 0.42 x10^3/uL (0.2-0.8); MONOCYTES % (AUTO) 12 % (2-9); NEUTROPHILS # (AUTO) 1.27 x10^3/uL (1.8-6.8); NEUTROPHILS % (AUTO) 35 % (42-75); PLATELET COUNT 137 x10^3/uL (130-400); RED BLOOD COUNT 4.33 x10^6/uL (3.82-5.3); RED CELL DISTRIBUTION WIDTH 13.4 % (9.6-15.2)
[2018-11-17 06:11] LABS: CHLORIDE 117 mmol/L (98-107)
[2018-11-17 06:33] LABS: ALANINE AMINOTRANSFERASE 13 U/L (12-78); ALBUMIN 3.3 g/dL (3.4-5.0); ALKALINE PHOSPHATASE 81 U/L (45-117); ANION GAP 8 mmol/L (5-15); BILIRUBIN,TOTAL 0.2 mg/dL (0.2-1.0); CREATININE 0.52 mg/dL (0.55-1.02); TOTAL PROTEIN 6.6 g/dL (6.4-8.2)
[2018-11-17 06:35] VITALS: BP 104/67
[2018-11-17 07:39] LABS: CALCIUM 8.4 mg/dL (8.5-10.1)
[2018-11-17] MEDS ORDERED: LISINOPRIL 5 MG TABLET PO SCH (09:00)
[2018-11-17] MEDS: MULTIVITAMIN 1 TABLET PO SCH (09:06)
[2018-11-17] MEDS: SENNA/DOCUSATE TABLET PO SCH (09:06)
[2018-11-17] MEDS: SPIRONOLACTONE 25 MG TABLET PO SCH (09:06)
[2018-11-17] MEDS: SODIUM CHLORIDE FLUSH 10ML SYR IVF SCH ×3 (09:06→22:53)
[2018-11-17] MEDS: THIAMINE 100MG TABLET PO SCH (09:07)
[2018-11-17] MEDS: SODIUM CHLORIDE 0.9% 1,000 ML IV SCH ×2 (10:54→22:54)
[2018-11-17 12:20] VITALS: BP 113/74
[2018-11-17] MEDS ORDERED: CEFAZOLIN 1,000 MG ONE (14:04)
[2018-11-17] MEDS ORDERED: FENTANYL PF 100 MCG/2ML ONE ×2 (14:04→14:48)
[2018-11-17] MEDS ORDERED: MIDAZOLAM 1 MG/ML, 5ML ONE ×2 (14:04→14:48)
[2018-11-17] MEDS ORDERED: LIDOCAINE 2%, 20ML ONE (14:05)
[2018-11-17] MEDS ORDERED: DIPHENHYDRAMINE 50 MG/ML, 1ML ONE (14:15)
[2018-11-17] MEDS ORDERED: LIDOCAINE 1%, 20ML ONE (15:03)
[2018-11-17] MEDS ORDERED: HOLD MEDICATION MC PRN (16:00)
[2018-11-17] MEDS: ACETAMINOPHEN 325 MG TABLET PO PRN ×2 (16:23→22:52)
[2018-11-17] MEDS: HYDROcodone/APAP 5/325 TABLET PO PRN (17:01)
[2018-11-17] MEDS ORDERED: AMIODARONE 900 MG in DEXTROSE 5% 482 ML IV PRN (19:00)
[2018-11-17] MEDS ORDERED: AMIODARONE 150 MG in DEXTROSE 5% 100 ML IV ONE (19:00)
[2018-11-17 19:22] VITALS: BP 99/67
[2018-11-17] MEDS ORDERED: FILTER 0.22 MICRON FOR AMIODARONE IV PRN (19:30)
[2018-11-17 20:00] VITALS: BP 118/73
[2018-11-17] MEDS: NICOTINE 21 MG/24 HR PATCH.TD24 TD SCH (22:55)
[2018-11-18] VITALS (8 sets, daily range): BP systolic 99–117; BP diastolic 66–78
[2018-11-18] MEDS: CEFAZOLIN PMX 1GM/50ML 50 ML IVPB SCH ×2 (00:15→10:52)
[2018-11-18] MEDS: HYDROcodone/APAP 5/325 TABLET PO PRN ×3 (04:23→20:35)
[2018-11-18 05:20] LABS: ALANINE AMINOTRANSFERASE 14 U/L (12-78); ALBUMIN 3.2 g/dL (3.4-5.0); ANION GAP 3 mmol/L (5-15); CALCIUM 8.3 mg/dL (8.5-10.1); CHLORIDE 113 mmol/L (98-107)
[2018-11-18 05:22] LABS: ALKALINE PHOSPHATASE 77 U/L (45-117); CREATININE 0.61 mg/dL (0.55-1.02)
[2018-11-18 05:26] LABS: BILIRUBIN,TOTAL < 0.1 mg/dL (0.2-1.0)
[2018-11-18] MEDS ORDERED: POTASSIUM CHLORIDE 20 MEQ TAB.ER.PRT PO ONE (08:00)
[2018-11-18] MEDS: SODIUM CHLORIDE FLUSH 10ML SYR IVF SCH ×4 (10:52→23:10)
[2018-11-18] MEDS: SENNA/DOCUSATE TABLET PO SCH (10:52)
[2018-11-18] MEDS: LISINOPRIL 5 MG TABLET PO SCH (10:52)
[2018-11-18] MEDS: MULTIVITAMIN 1 TABLET PO SCH (10:52)
[2018-11-18] MEDS: SPIRONOLACTONE 25 MG TABLET PO SCH (10:52)
[2018-11-18] MEDS: SODIUM CHLORIDE 0.9% 1,000 ML IV SCH (10:52)
[2018-11-18] MEDS: THIAMINE 100MG TABLET PO SCH (10:52)
[2018-11-18] MEDS ORDERED: AMIODARONE 200 MG TABLET PO SCH (15:00)
[2018-11-18] MEDS: CARVEDILOL 12.5 MG TABLET PO SCH (18:32)
[2018-11-18] MEDS ORDERED: DIPHENHYDRAMINE 25 MG CAPSULE PO ONE (20:00)
[2018-11-18] MEDS: NICOTINE 21 MG/24 HR PATCH.TD24 TD SCH (23:11)
[2018-11-19 01:16] VITALS: BP 107/67
[2018-11-19] MEDS: HYDROcodone/APAP 5/325 TABLET PO PRN ×2 (01:22→06:27)
[2018-11-19 03:33] VITALS: BP 103/66
[2018-11-19] MEDS ORDERED: AMIODARONE 200 MG TABLET PO SCH (04:00)
[2018-11-19 06:18] VITALS: BP 114/75
[2018-11-19] MEDS: CARVEDILOL 12.5 MG TABLET PO SCH (06:27)
[2018-11-19 06:49] VITALS: BP 102/67
[2018-11-19] MEDS: LISINOPRIL 5 MG TABLET PO SCH (08:47)
[2018-11-19] MEDS: SENNA/DOCUSATE TABLET PO SCH (08:47)
[2018-11-19] MEDS: SPIRONOLACTONE 25 MG TABLET PO SCH (08:47)
[2018-11-19] MEDS: THIAMINE 100MG TABLET PO SCH (08:47)
[2018-11-19] MEDS: SODIUM CHLORIDE FLUSH 10ML SYR IVF SCH ×2 (08:48→09:00)
[2018-11-19] MEDS ORDERED: ACET325T14 PO (10:11)
[2018-11-19] MEDS ORDERED: AMIO200T42 PO (10:11)
== END 2018-11-19 11:55 | disposition home or self-care (01) | DRG 265 ==
LOC: ED 21:16 → EDIP 21:31 → 5SO 22:43 → DCLOUNGE 11-19 11:47
PROVIDERS: ADMIT Internal Medicine; ATTEND Internal Medicine
PROC: 02WA0MZ Revision of Cardiac Lead in Heart, Open Approach (ICD-10-PCS; principal; 2018-11-17)
PROC: 02HK3KZ Insertion of Defibrillator Lead into Right Ventricle, Percutaneous Approach (ICD-10-PCS; 2018-11-17)
PROC: 02PA0MZ Removal of Cardiac Lead from Heart, Open Approach (ICD-10-PCS; 2018-11-17)
DX: T82.120A Displacement of cardiac electrode, initial encounter (principal); I47.2 Ventricular tachycardia; I42.9 Cardiomyopathy, unspecified; E87.2 Acidosis; I50.22 Chronic systolic (congestive) heart failure; Y92.89 Other specified places as the place of occurrence of the external cause; Y71.2 Prosthetic and other implants, materials and accessory cardiovascular devices associated with adverse incidents; F15.10 Other stimulant abuse, uncomplicated; F17.210 Nicotine dependence, cigarettes, uncomplicated; G89.29 Other chronic pain; Z79.899 Other long term (current) drug therapy; Z86.79 Personal history of other diseases of the circulatory system; Z95.810 Presence of automatic (implantable) cardiac defibrillator; F11.10 Opioid abuse, uncomplicated; M54.9 Dorsalgia, unspecified; Z71.51 Drug abuse counseling and surveillance of drug abuser
CPT/HCPCS: 33215; 33216; 33244; 36415; 71045; 80048; 80053; 82040; 83735; 83880; 84484; 85025; 93005; 96360; 99156; 99157; 99285; C1892; C1895; G0378; J0690; J2250; J3010; J3490; J0282; J1200; J7030; J7060; Q0163

== ENCOUNTER 2019-01-08 19:12 | Inpatient (IN) | payer MEDICAID ==
[~2019-01-08] VITALS: Ht 170.2 cm; Wt 93.9 kg
[~2019-01-08 19:12] MED LIST changes: +ACET325T14 PO; +AMIO200T42 PO; +CARV12.543 PO
--- NOTE | 2019-01-08 19:53 | NUR ---
PT PRESENTED AND STATED AICD TRIGGERED MESSAGE TO CARDIOLOGY TODAY WHO TOLD PT TO COME IN AND HAVE IT CHECKED OUT IN ER. MONITORS APPLIED, SIDERAILS UP X2, CALL LIGHT WITHIN REACH. AWAITING XRAY AND LAB RESULTS
--- NOTE | 2019-01-08 19:55 | NUR ---
ELECTRONIC DEVICE REPAIRER ON TELEPHONE FOR CALL FOR PACER INTERROGATION
[2019-01-08] MEDS ORDERED: AMIODARONE 200 MG TABLET PO ONE (20:30)
[2019-01-08] MEDS ORDERED: AMIODARONE 200 MG TABLET ONE (20:33)
--- NOTE | 2019-01-08 20:53 | NUR ---
pt resting calmly, iv site started by marek vega. labs drawn and sent. monitors in place, call light within reach. awaiting room for admit
[2019-01-08] MEDS ORDERED: BISACODYL 10 MG SUPP PR PRN (21:00)
[2019-01-08] MEDS: CARVEDILOL 12.5 MG TABLET PO SCH ×2 (21:00→22:34)
[2019-01-08] MEDS ORDERED: ONDANSETRON ODT 4 MG PO PRN (21:00)
[2019-01-08] MEDS ORDERED: ACETAMINOPHEN 325 MG TABLET PO PRN (21:00)
[2019-01-08] MEDS ORDERED: POLYETHYLENE GLYCOL 17 GM PACKET PO PRN (21:00)
[2019-01-08 21:01] LABS: BASOPHILS # (AUTO) 0.04 x10^3/uL (0-0.1); BASOPHILS % (AUTO) 1 % (0-1); EOSINOPHILS # (AUTO) 0.16 x10^3/uL (0-0.4); EOSINOPHILS % (AUTO) 2 % (1-7); LYMPHOCYTES # (AUTO) 1.98 x10^3/uL (1-3.4); LYMPHOCYTES % (AUTO) 27 % (22-44); MD NO; MEAN CORPUSCULAR HEMOGLOBIN 28.6 pg (27.0-34.8); MEAN CORPUSCULAR HGB CONC 33.7 g/dL (32.4-35.8); MEAN CORPUSCULAR VOLUME 84.9 fL (80-100); MEAN PLATELET VOLUME 8.4 fL (7.4-10.4); MONOCYTES # (AUTO) 0.53 x10^3/uL (0.2-0.8); MONOCYTES % (AUTO) 7 % (2-9); NEUTROPHILS # (AUTO) 4.74 x10^3/uL (1.8-6.8); NEUTROPHILS % (AUTO) 64 % (42-75); PLATELET COUNT 240 x10^3/uL (130-400); RED BLOOD COUNT 4.97 x10^6/uL (3.82-5.3); RED CELL DISTRIBUTION WIDTH 13.7 % (9.6-15.2)
[2019-01-08 21:09] LABS: ALBUMIN 4.2 g/dL (3.4-5.0); ANION GAP 8 mmol/L (5-15); CALCIUM 9.1 mg/dL (8.5-10.1); CHLORIDE 106 mmol/L (98-107); CREATININE 0.88 mg/dL (0.55-1.02)
[2019-01-08 21:10] LABS: INTERNATIONAL NORMALIZED RATIO 0.97 (0.93-1.1); PROTHROMBIN TIME 10.2 Seconds (9.6-11.5)
[2019-01-08 21:13] LABS: TROPONIN I < 0.015 ng/mL (0.000-0.045)
[2019-01-08] MEDS: SODIUM CHLORIDE FLUSH 10ML SYR IVF SCH (21:28)
[2019-01-08] MEDS ORDERED: HEPARIN 5,000 UNITS/ML, 1ML ONE (21:43)
[2019-01-08] MEDS: HEPARIN 5,000 UNITS/ML, 1ML SQ SCH (22:05)
[2019-01-08 22:30] VITALS: BP 107/73
[2019-01-08 22:31] VITALS: BP 107/73
[2019-01-09 02:30] VITALS: BP 92/55
[2019-01-09] MEDS: HEPARIN 5,000 UNITS/ML, 1ML SQ SCH ×2 (05:27→15:46)
[2019-01-09 05:42] LABS: BASOPHILS # (AUTO) 0.02 x10^3/uL (0-0.1); BASOPHILS % (AUTO) 1 % (0-1); EOSINOPHILS # (AUTO) 0.14 x10^3/uL (0-0.4); EOSINOPHILS % (AUTO) 3 % (1-7); LYMPHOCYTES # (AUTO) 2.13 x10^3/uL (1-3.4); LYMPHOCYTES % (AUTO) 41 % (22-44); MD NO; MEAN CORPUSCULAR HEMOGLOBIN 28.8 pg (27.0-34.8); MEAN CORPUSCULAR HGB CONC 34.1 g/dL (32.4-35.8); MEAN CORPUSCULAR VOLUME 84.5 fL (80-100); MEAN PLATELET VOLUME 8.3 fL (7.4-10.4); MONOCYTES # (AUTO) 0.44 x10^3/uL (0.2-0.8); MONOCYTES % (AUTO) 9 % (2-9); NEUTROPHILS # (AUTO) 2.46 x10^3/uL (1.8-6.8); NEUTROPHILS % (AUTO) 47 % (42-75); PLATELET COUNT 183 x10^3/uL (130-400); RED BLOOD COUNT 4.37 x10^6/uL (3.82-5.3); RED CELL DISTRIBUTION WIDTH 14.1 % (9.6-15.2)
[2019-01-09 05:54] LABS: CHLORIDE 113 mmol/L (98-107)
[2019-01-09 06:18] LABS: ALANINE AMINOTRANSFERASE 17 U/L (12-78); ALBUMIN 3.3 g/dL (3.4-5.0); ALKALINE PHOSPHATASE 96 U/L (45-117); ANION GAP 9 mmol/L (5-15); BILIRUBIN,TOTAL 0.4 mg/dL (0.2-1.0); CALCIUM 8.8 mg/dL (8.5-10.1); CREATININE 0.78 mg/dL (0.55-1.02); TOTAL PROTEIN 6.6 g/dL (6.4-8.2)
[2019-01-09 07:58] VITALS: BP 101/66
[2019-01-09] MEDS: SODIUM CHLORIDE FLUSH 10ML SYR IVF SCH ×2 (09:00→21:31)
[2019-01-09] MEDS: AMIODARONE 200 MG TABLET PO SCH ×2 (10:04→21:31)
[2019-01-09] MEDS: SPIRONOLACTONE 25 MG TABLET PO SCH (10:04)
[2019-01-09] MEDS: SENNA/DOCUSATE TABLET PO SCH (10:05)
[2019-01-09] MEDS: MULTIVITAMIN 1 TABLET PO SCH (10:05)
[2019-01-09] MEDS: CARVEDILOL 12.5 MG TABLET PO SCH ×2 (10:05→21:30)
[2019-01-09] MEDS: NICOTINE 21 MG/24 HR PATCH.TD24 TD SCH (10:05)
[2019-01-09] MEDS: THIAMINE 100MG TABLET PO SCH (10:05)
[2019-01-09] MEDS: LISINOPRIL 5 MG TABLET PO SCH (10:06)
[2019-01-09 14:28] VITALS: BP 96/63
[2019-01-09 21:28] VITALS: BP 101/65
[2019-01-10] MEDS: HEPARIN 5,000 UNITS/ML, 1ML SQ SCH ×4 (00:04→23:01)
[2019-01-10 00:08] VITALS: BP 108/67
[2019-01-10 07:48] VITALS: BP 113/71
[2019-01-10] MEDS: SODIUM CHLORIDE FLUSH 10ML SYR IVF SCH ×2 (09:00→22:08)
[2019-01-10] MEDS: SPIRONOLACTONE 25 MG TABLET PO SCH (10:20)
[2019-01-10] MEDS: THIAMINE 100MG TABLET PO SCH (10:20)
[2019-01-10] MEDS: AMIODARONE 200 MG TABLET PO SCH ×2 (10:20→22:08)
[2019-01-10] MEDS: MULTIVITAMIN 1 TABLET PO SCH (10:20)
[2019-01-10] MEDS: CARVEDILOL 12.5 MG TABLET PO SCH ×2 (10:21→22:08)
[2019-01-10] MEDS: LISINOPRIL 5 MG TABLET PO SCH (10:21)
[2019-01-10] MEDS: SENNA/DOCUSATE TABLET PO SCH (10:22)
[2019-01-10] MEDS: NICOTINE 21 MG/24 HR PATCH.TD24 TD SCH (10:22)
[2019-01-10 13:39] VITALS: BP 102/68
[2019-01-10 22:09] VITALS: BP 118/75
[2019-01-11 02:49] VITALS: BP 94/65
[2019-01-11] MEDS: ACETAMINOPHEN 325 MG TABLET PO PRN ×3 (05:42→21:50)
[2019-01-11 07:35] VITALS: BP 107/70
[2019-01-11] MEDS ORDERED: CEFAZOLIN PMX 1GM/50ML 50 ML IVPB ONE (08:30)
[2019-01-11] MEDS: SPIRONOLACTONE 25 MG TABLET PO SCH (08:38)
[2019-01-11] MEDS: CARVEDILOL 12.5 MG TABLET PO SCH ×2 (08:38→21:50)
[2019-01-11] MEDS: AMIODARONE 200 MG TABLET PO SCH ×2 (08:38→21:49)
[2019-01-11] MEDS: MULTIVITAMIN 1 TABLET PO SCH (08:39)
[2019-01-11] MEDS: NICOTINE 21 MG/24 HR PATCH.TD24 TD SCH (08:40)
[2019-01-11] MEDS: THIAMINE 100MG TABLET PO SCH (08:40)
[2019-01-11] MEDS: LISINOPRIL 5 MG TABLET PO SCH (08:40)
[2019-01-11] MEDS: SENNA/DOCUSATE TABLET PO SCH (08:40)
[2019-01-11] MEDS: SODIUM CHLORIDE FLUSH 10ML SYR IVF SCH ×3 (08:40→21:50)
[2019-01-11] MEDS: HEPARIN 5,000 UNITS/ML, 1ML SQ SCH (10:00)
[2019-01-11] MEDS: SODIUM CHLORIDE 0.9% 1,000 ML IV SCH ×2 (12:03→15:59)
[2019-01-11 13:25] VITALS: BP 107/73
[2019-01-11] MEDS ORDERED: VANCOMYCIN 500 MG ONE (13:39)
[2019-01-11] MEDS ORDERED: VANCOMYCIN PMX 1GM/200ML 200 ML ONE (13:39)
[2019-01-11] MEDS ORDERED: LIDOCAINE 1%, 20ML ONE (13:39)
[2019-01-11] MEDS ORDERED: ROCURONIUM 10MG/ML,5ML ONE (15:39)
[2019-01-11] MEDS ORDERED: PROPOFOL 10 MG/ML, 20ML ONE (15:39)
[2019-01-11] MEDS ORDERED: ONDANSETRON 2MG/ML, 2ML ONE (15:39)
[2019-01-11] MEDS ORDERED: SUCCINYLCHOLINE 20 MG/ML, 10ML ONE (15:39)
[2019-01-11] MEDS ORDERED: FENTANYL PF 250 MCG/5ML ONE (15:43)
[2019-01-11] MEDS ORDERED: MIDAZOLAM 1 MG/ML, 2ML ONE (15:43)
[2019-01-11] MEDS ORDERED: DEXAMETHASONE 4 MG/ML, 1ML ONE ×2 (15:44)
[2019-01-11] MEDS ORDERED: VASOPRESSIN 20 UNIT/ML, 1ML ONE (16:36)
[2019-01-11] MEDS ORDERED: OXYcodone 5 MG/5 ML ORAL.SOL UDC PO PRN (18:00)
[2019-01-11] MEDS ORDERED: ONDANSETRON ODT 8 MG PO PRN (18:00)
[2019-01-11] MEDS ORDERED: LABETALOL 5MG/ML, 20ML IV PRN (18:00)
[2019-01-11] MEDS ORDERED: ACETAMINOPHEN 325 MG TABLET PO PRN (18:00)
[2019-01-11] MEDS ORDERED: MORPHINE SULFATE 4 MG/ML, 1ML IVPush PRN (18:00)
[2019-01-11] MEDS ORDERED: HALOPERIDOL 5 MG/ML IV PRN (18:00)
[2019-01-11] MEDS ORDERED: PROMETHAZINE 25 MG/ML, 1ML IV PRN (18:00)
[2019-01-11] MEDS ORDERED: ALBUTEROL SULFATE 2.5 MG/3 ML NPPB PRN (18:00)
[2019-01-11] MEDS ORDERED: EPHEDRINE 50 MG/ML, 1ML IVPush PRN (18:00)
[2019-01-11] MEDS ORDERED: PROMETHAZINE 12.5 MG SUPP PR PRN (18:00)
[2019-01-11] MEDS ORDERED: HOLD MEDICATION MC PRN (18:00)
[2019-01-11] MEDS ORDERED: hydrALAzine 20 MG/ML, 1ML IV PRN (18:00)
[2019-01-11] MEDS ORDERED: FENTANYL PF 100 MCG/2ML IV PRN (18:00)
[2019-01-11] MEDS ORDERED: DIAZEPAM 5 MG/ML, 2ML IVPush PRN (18:00)
[2019-01-11] MEDS ORDERED: MIDAZOLAM 1 MG/ML, 2ML IV PRN (18:00)
[2019-01-11] MEDS ORDERED: MEPERIDINE/PF 25MG/0.5ML IVPush PRN (18:00)
[2019-01-11] MEDS ORDERED: ONDANSETRON 2MG/ML, 2ML IV PRN (18:00)
[2019-01-11] MEDS: HYDROmorphone 2 MG/ML, 1ML IVPush PRN ×2 (18:01→18:09)
[2019-01-11] MEDS ORDERED: HYDROmorphone 2 MG/ML, 1ML ONE (18:06)
[2019-01-11] MEDS ORDERED: FENTANYL PF 100 MCG/2ML ONE (18:06)
[2019-01-11] MEDS ORDERED: OXYcodone 5 MG/5 ML ORAL.SOL UDC ONE (18:06)
[2019-01-11 19:23] VITALS: BP 101/67
[2019-01-12] VITALS: BP 120/84
[2019-01-12] MEDS: SODIUM CHLORIDE 0.9% 1,000 ML IV SCH (00:25)
[2019-01-12] MEDS ORDERED: VANCOMYCIN PMX 1GM/200ML 200 ML IVPB ONE (01:40)
[2019-01-12 04:00] VITALS: BP 118/78
[2019-01-12 06:56] VITALS: BP 107/70
[2019-01-12] MEDS ORDERED: KETOROLAC 30 MG/1 ML IM ONE (08:30)
[2019-01-12] MEDS: SODIUM CHLORIDE FLUSH 10ML SYR IVF SCH ×2 (09:00→09:22)
[2019-01-12] MEDS ORDERED: KETOROLAC 30 MG/1 ML ONE (09:15)
[2019-01-12] MEDS: LISINOPRIL 5 MG TABLET PO SCH (09:20)
[2019-01-12] MEDS: SENNA/DOCUSATE TABLET PO SCH (09:21)
[2019-01-12] MEDS: THIAMINE 100MG TABLET PO SCH (09:21)
[2019-01-12] MEDS: AMIODARONE 200 MG TABLET PO SCH (09:21)
[2019-01-12] MEDS: NICOTINE 21 MG/24 HR PATCH.TD24 TD SCH (09:21)
[2019-01-12] MEDS: MULTIVITAMIN 1 TABLET PO SCH (09:21)
[2019-01-12] MEDS: CARVEDILOL 12.5 MG TABLET PO SCH (09:21)
[2019-01-12] MEDS: SPIRONOLACTONE 25 MG TABLET PO SCH (09:21)
[2019-01-12] MEDS ORDERED: KETOROLAC 30 MG/1 ML IVPush ONE (09:30)
[2019-01-12] MEDS ORDERED: AMIO200T42 PO (09:52)
[2019-01-12] MEDS ORDERED: NICO-487 TD (09:52)
[2019-01-12] MEDS ORDERED: HYDR-3653 PO (11:35)
[2019-01-13] MEDS ORDERED: SODIUM CHLORIDE 0.9% 1,000 ML IV SCH (07:59)
== END 2019-01-12 11:50 | disposition home or self-care (01) | DRG 226 ==
LOC: ED 21:16 → EDIP 21:17 → 5SO 22:24 → DCLOUNGE 01-12 11:27
PROVIDERS: ADMIT Family Medicine; ATTEND Family Medicine
PROC: 02HK3KZ Insertion of Defibrillator Lead into Right Ventricle, Percutaneous Approach (ICD-10-PCS; 2019-01-11)
PROC: 02PA3MZ Removal of Cardiac Lead from Heart, Percutaneous Approach (ICD-10-PCS; 2019-01-11)
PROC: 02H63KZ Insertion of Defibrillator Lead into Right Atrium, Percutaneous Approach (ICD-10-PCS; 2019-01-11)
PROC: B51M1ZZ Fluoroscopy of Right Upper Extremity Veins using Low Osmolar Contrast (ICD-10-PCS; 2019-01-11)
PROC: 0JH608Z Insertion of Defibrillator Generator into Chest Subcutaneous Tissue and Fascia, Open Approach (ICD-10-PCS; principal; 2019-01-11 14:00)
DX: T82.110A Breakdown (mechanical) of cardiac electrode, initial encounter (principal); I49.01 Ventricular fibrillation; T82.198A Other mechanical complication of other cardiac electronic device, initial encounter; I42.7 Cardiomyopathy due to drug and external agent; I50.22 Chronic systolic (congestive) heart failure; M54.9 Dorsalgia, unspecified; G89.29 Other chronic pain; E66.9 Obesity, unspecified; F15.10 Other stimulant abuse, uncomplicated; F17.210 Nicotine dependence, cigarettes, uncomplicated; I25.5 Ischemic cardiomyopathy; I11.0 Hypertensive heart disease with heart failure; G47.30 Sleep apnea, unspecified; Y71.2 Prosthetic and other implants, materials and accessory cardiovascular devices associated with adverse incidents; Y92.89 Other specified places as the place of occurrence of the external cause; Z68.32 Body mass index [BMI] 32.0-32.9, adult; Z86.74 Personal history of sudden cardiac arrest; Z86.79 Personal history of other diseases of the circulatory system; Z91.19 Patient's noncompliance with other medical treatment and regimen
CPT/HCPCS: 36415; 87806; J3490; 33217; 33244; 71045; 80048; 80053; 80074; 82040; 83735; 84443; 84484; 85025; 85610; 85730; 93005; 93306; C1779; C1892; C1895; G0378; J1100; J1170; J1644; J1885; J2250; J2405; J2704; J3010; J3370; Q0162; G0475; J0330; J7030; Q9967

== ENCOUNTER 2019-01-13 22:23 | Inpatient (IN) | payer MEDICAID ==
[~2019-01-13] VITALS: Ht 170.2 cm; Wt 95.4 kg
[~2019-01-13 22:23] MED LIST changes: +HYDR-3653 PO; +NICO-487 TD
[2019-01-13] MEDS ORDERED: SODIUM CHLORIDE FLUSH 10ML SYR IVF ONE (22:30)
--- NOTE | 2019-01-13 22:53 | NUR ---
PT BIB FLIGHT FROM [facility]. PT REPORTS HER AICD FIRED FIVE TIMES BEFORE SHE WENT INTO THE HOSPITAL. PT ALSO REPORTS METH ABUSE. EMS REPOERTS THEY WERE TAKING OFF HER AICD STARTED FIRING. A MAGNET WAS PLACED BY EMS OVER THE DEVICE. PT WAS GIVEN 25 MG OF CARDIZEM HER HEART RATE WENT TO 180. HEART RATE NOW [address] GRIFFITH HAS SEEN PATIENT.
[2019-01-13 22:55] LABS: BASOPHILS # (AUTO) 0.03 x10^3/uL (0-0.1); BASOPHILS % (AUTO) 0 % (0-1); EOSINOPHILS # (AUTO) 0.33 x10^3/uL (0-0.4); EOSINOPHILS % (AUTO) 3 % (1-7); LYMPHOCYTES # (AUTO) 1.91 x10^3/uL (1-3.4); LYMPHOCYTES % (AUTO) 16 % (22-44); MD NO; MEAN CORPUSCULAR HEMOGLOBIN 28.8 pg (27.0-34.8); MEAN CORPUSCULAR HGB CONC 33.8 g/dL (32.4-35.8); MEAN CORPUSCULAR VOLUME 85.4 fL (80-100); MONOCYTES # (AUTO) 0.68 x10^3/uL (0.2-0.8); MONOCYTES % (AUTO) 6 % (2-9); NEUTROPHILS # (AUTO) 9.14 x10^3/uL (1.8-6.8); NEUTROPHILS % (AUTO) 76 % (42-75); PLATELET COUNT 196 x10^3/uL (130-400); RED BLOOD COUNT 4.11 x10^6/uL (3.82-5.3); RED CELL DISTRIBUTION WIDTH 14.4 % (9.6-15.2)
--- NOTE | 2019-01-13 23:00 | NUR ---
ST NEELY IN THE ROOM
[2019-01-13 23:02] LABS: INTERNATIONAL NORMALIZED RATIO 0.99 (0.93-1.1); PROTHROMBIN TIME 10.4 Seconds (9.6-11.5)
--- NOTE | 2019-01-13 23:04 | NUR ---
DR GRIFFITH IN ROOM
[2019-01-13 23:05] LABS: ALANINE AMINOTRANSFERASE 69 U/L (12-78); ALBUMIN 3.6 g/dL (3.4-5.0); ANION GAP 6 mmol/L (5-15); CALCIUM 8.6 mg/dL (8.5-10.1); CHLORIDE 112 mmol/L (98-107)
[2019-01-13 23:10] LABS: ALKALINE PHOSPHATASE 93 U/L (45-117); TOTAL PROTEIN 6.8 g/dL (6.4-8.2)
[2019-01-13 23:13] LABS: BILIRUBIN,TOTAL < 0.1 mg/dL (0.2-1.0)
[2019-01-13 23:15] LABS: TROPONIN I 0.854 ng/mL (0.000-0.045)
--- NOTE | 2019-01-13 23:16 | NUR ---
DR GRIFFITH AWARE OF TROP
[2019-01-13] MEDS ORDERED: ASPIRIN 325 MG TABLET ONE (23:20)
[2019-01-13] MEDS ORDERED: ASPIRIN 325 MG TABLET PO ONE (23:30)
[2019-01-14] MEDS ORDERED: ONDANSETRON 2MG/ML, 2ML IVPush PRN
[2019-01-14] MEDS ORDERED: DILTIAZEM 125 MG in SODIUM CHLORIDE 0.9% 100 ML IV SCH
--- NOTE | 2019-01-14 00:22 | NUR ---
PT RESTING IN BED, NO COMPLAINTS AT THIS TIME, VSS, AWAITING ADMIT
--- NOTE | 2019-01-14 00:29 | NUR ---
REPORT TO SAUNDRA ALVARADO. FLOOR READY FOR PT. TRANSPORT.
[2019-01-14 01:30] VITALS: BP 113/79
[2019-01-14 02:17] VITALS: BP 113/79
[2019-01-14 02:17] LABS: AMPHETAMINE SCREEN, URINE Positive (Negative); BARBITURATE SCREEN, URINE Negative (Negative); BENZODIAZEPINE SCREEN, URINE Positive (Negative); CANNABINOID SCREEN, URINE Negative (Negative); COCAINE SCREEN, URINE Negative (Negative); METHADONE SCREEN, URINE Negative (Negative); OPIATE SCREEN, URINE Positive (Negative)
[2019-01-14 06:16] LABS: ANION GAP 6 mmol/L (5-15); CALCIUM 8.7 mg/dL (8.5-10.1); CHLORIDE 112 mmol/L (98-107)
[2019-01-14 06:21] LABS: MEAN CORPUSCULAR HEMOGLOBIN 28.2 pg (27.0-34.8); MEAN CORPUSCULAR HGB CONC 32.9 g/dL (32.4-35.8); MEAN CORPUSCULAR VOLUME 85.8 fL (80-100); MEAN PLATELET VOLUME 7.8 fL (7.4-10.4); PLATELET COUNT 178 x10^3/uL (130-400); RED BLOOD COUNT 4.01 x10^6/uL (3.82-5.3); RED CELL DISTRIBUTION WIDTH 14.5 % (9.6-15.2)
[2019-01-14 06:27] LABS: CREATININE 0.65 mg/dL (0.55-1.02)
[2019-01-14 06:40] LABS: BASOPHILS # (AUTO) 0.04 x10^3/uL (0-0.1); BASOPHILS % (AUTO) 1 % (0-1); EOSINOPHILS # (AUTO) 0.37 x10^3/uL (0-0.4); EOSINOPHILS % (AUTO) 5 % (1-7); LYMPHOCYTES # (AUTO) 2.29 x10^3/uL (1-3.4); LYMPHOCYTES % (AUTO) 30 % (22-44); MD SCAN; MONOCYTES # (AUTO) 0.49 x10^3/uL (0.2-0.8); MONOCYTES % (AUTO) 6 % (2-9); NEUTROPHILS # (AUTO) 4.46 x10^3/uL (1.8-6.8); NEUTROPHILS % (AUTO) 58 % (42-75)
[2019-01-14 07:30] VITALS: BP 116/76
[2019-01-14] MEDS: THIAMINE 100MG TABLET PO SCH (09:00)
[2019-01-14] MEDS: LISINOPRIL 5 MG TABLET PO SCH (09:00)
[2019-01-14] MEDS: AMIODARONE 200 MG TABLET PO SCH ×2 (09:00→21:45)
[2019-01-14] MEDS: SPIRONOLACTONE 25 MG TABLET PO SCH (09:00)
[2019-01-14] MEDS ORDERED: CEFAZOLIN 1,000 MG ONE ×2 (09:41→11:00)
[2019-01-14] MEDS ORDERED: LIDOCAINE 2%, 20ML ONE (09:41)
[2019-01-14] MEDS ORDERED: FENTANYL PF 250 MCG/5ML ONE (09:47)
[2019-01-14] MEDS ORDERED: PROPOFOL 50 ML ONE ×2 (09:47→10:59)
[2019-01-14] MEDS ORDERED: MIDAZOLAM 1 MG/ML, 2ML ONE (09:47)
[2019-01-14] MEDS ORDERED: OXYcodone 5 MG/5 ML ORAL.SOL UDC PO PRN (11:00)
[2019-01-14] MEDS ORDERED: DIPHENHYDRAMINE 50 MG/ML, 1ML IVPush PRN (11:00)
[2019-01-14] MEDS ORDERED: DIAZEPAM 5 MG/ML, 2ML IVPush PRN (11:00)
[2019-01-14] MEDS ORDERED: FENTANYL PF 100 MCG/2ML IV PRN (11:00)
[2019-01-14] MEDS ORDERED: MIDAZOLAM 1 MG/ML, 2ML IV PRN (11:00)
[2019-01-14] MEDS ORDERED: HYDROmorphone 2 MG/ML, 1ML IVPush PRN (11:00)
[2019-01-14] MEDS ORDERED: ONDANSETRON 2MG/ML, 2ML IV PRN (11:00)
[2019-01-14] MEDS ORDERED: ONDANSETRON ODT 8 MG PO PRN (11:00)
[2019-01-14] MEDS ORDERED: EPHEDRINE 50 MG/ML, 1ML IM PRN (11:00)
[2019-01-14] MEDS ORDERED: EPHEDRINE 50 MG/ML, 1ML IVPush PRN (11:00)
[2019-01-14] MEDS ORDERED: OXYcodone 5 MG/5 ML ORAL.SOL UDC ONE (12:10)
[2019-01-14] MEDS ORDERED: HOLD MEDICATION MC PRN (12:30)
[2019-01-14 14:10] VITALS: BP 120/73
[2019-01-14 18:54] VITALS: BP 112/75
[2019-01-14 21:44] VITALS: BP 120/80
[2019-01-14] MEDS: SODIUM CHLORIDE FLUSH 10ML SYR IVF SCH (21:46)
[2019-01-15 01:03] VITALS: BP 108/72
[2019-01-15] MEDS ORDERED: MORPHINE SULFATE 4 MG/ML, 1ML IVPush PRN (02:00)
[2019-01-15 06:13] LABS: TROPONIN I 0.186 ng/mL (0.000-0.045)
[2019-01-15] MEDS ORDERED: VANCOMYCIN PMX 1GM/200ML 200 ML IVPB SCH (07:00)
[2019-01-15] MEDS: THIAMINE 100MG TABLET PO SCH (08:40)
[2019-01-15] MEDS: LISINOPRIL 5 MG TABLET PO SCH (08:40)
[2019-01-15] MEDS: SODIUM CHLORIDE FLUSH 10ML SYR IVF SCH ×2 (08:40→21:37)
[2019-01-15] MEDS: AMIODARONE 200 MG TABLET PO SCH ×2 (08:40→21:36)
[2019-01-15] MEDS: SPIRONOLACTONE 25 MG TABLET PO SCH (08:40)
[2019-01-15 10:26] VITALS: BP 166/81
[2019-01-15 20:10] VITALS: BP 116/76
[2019-01-15 21:35] VITALS: BP 132/84
[2019-01-16 00:53] VITALS: BP 121/83
[2019-01-16] MEDS: THIAMINE 100MG TABLET PO SCH (07:20)
[2019-01-16] MEDS: SODIUM CHLORIDE FLUSH 10ML SYR IVF SCH (07:20)
[2019-01-16] MEDS: AMIODARONE 200 MG TABLET PO SCH (07:20)
[2019-01-16] MEDS: LISINOPRIL 5 MG TABLET PO SCH (07:20)
[2019-01-16] MEDS: SPIRONOLACTONE 25 MG TABLET PO SCH (07:20)
[2019-01-16 11:49] VITALS: BP 114/76
== END 2019-01-16 15:27 | disposition home or self-care (01) | DRG 260 ==
LOC: ED 22:59 → 5SO 01-14 00:48 → ED 01-14 00:51 → UNDOADMIN 01-14 00:54 → EDIP 01-14 00:54 → 5SO 01-14 00:57 → DCLOUNGE 01-16 15:11
PROVIDERS: ADMIT Internal Medicine; ATTEND Internal Medicine
PROC: 02WA3MZ Revision of Cardiac Lead in Heart, Percutaneous Approach (ICD-10-PCS; principal; 2019-01-14 10:00)
DX: T82.119A Breakdown (mechanical) of unspecified cardiac electronic device, initial encounter (principal); I49.01 Ventricular fibrillation; I42.0 Dilated cardiomyopathy; I47.1 Supraventricular tachycardia; I47.2 Ventricular tachycardia; Y71.2 Prosthetic and other implants, materials and accessory cardiovascular devices associated with adverse incidents; F15.90 Other stimulant use, unspecified, uncomplicated; G89.29 Other chronic pain; M54.9 Dorsalgia, unspecified; F17.210 Nicotine dependence, cigarettes, uncomplicated; I50.9 Heart failure, unspecified; Z79.899 Other long term (current) drug therapy; Z86.74 Personal history of sudden cardiac arrest
CPT/HCPCS: 33226; 36415; J3490; 71045; 80048; 80053; 80307; 83880; 84443; 84484; 85025; 85610; 93005; G0378; J0690; J2250; J2704; J3010